=== PATIENT | female | born 1945 | race Caucasian/White ===

== ENCOUNTER 2020-01-10 12:22 | Outpatient (REF) | payer MEDICARE, MEDICAID, SELFPAY | END 2020-01-10 12:23 | disposition home or self-care (01) | LOC: HO.LAB 12:22 | PROVIDERS: Visit Provider Internal Medicine | DX: Z20.828 Contact with and (suspected) exposure to other viral communicable diseases (principal) | CPT/HCPCS: 87635 ==

== ENCOUNTER 2020-03-26 11:19 | Outpatient (REF) | payer MEDICARE, MEDICAID, SELFPAY | END 2020-03-26 11:20 | disposition home or self-care (01) | LOC: HO.LAB 11:19 | PROVIDERS: PCP Physician Assistant; Visit Provider Internal Medicine | DX: Z20.828 Contact with and (suspected) exposure to other viral communicable diseases (principal) | CPT/HCPCS: 36415; C9803; U0003 ==

== ENCOUNTER 2020-04-02 09:54 | Outpatient (REF) | payer MEDICARE, MEDICAID, SELFPAY | END 2020-04-02 09:55 | disposition home or self-care (01) | LOC: HO.LAB 09:54 | PROVIDERS: Visit Provider Internal Medicine | DX: Z20.822 Contact with and (suspected) exposure to COVID-19 (principal) | CPT/HCPCS: 36415; C9803; U0003 ==